=== PATIENT | female | born 1980 | race Caucasian/White ===

== ENCOUNTER 2017-11-03 11:55 | Emergency (ER) | payer OTHER ==
[~2017-11-03] VITALS: Ht 175.3 cm; Wt 111.1 kg
[~2017-11-03 11:55] MED LIST: BRINTELLIX10 MG PO; MOBIC15 MG PO; NEURONTIN 300300 M1 PO; NORCO 5-325 TA1 EAC1 PO; WELLBUTRIN XL300 MG PO; ZOFRAN ODT4 MG PO
[2017-11-03] MEDS ORDERED: PREVACID15 MG PO (12:02)
[2017-11-03] MEDS ORDERED: TRAMADOL 50 MG50 MG PO (12:41)
[2017-11-03 13:09] VITALS: BP 115/70
== END 2017-11-03 13:10 | disposition home or self-care (01) ==
LOC: M.ERS 11:55
DX: S01.81XA Laceration without foreign body of other part of head, initial encounter (principal); G43.909 Migraine, unspecified, not intractable, without status migrainosus; M79.7 Fibromyalgia; Z88.1 Allergy status to other antibiotic agents; Z88.0 Allergy status to penicillin; W22.8XXA Striking against or struck by other objects, initial encounter; Y93.89 Activity, other specified; Y92.89 Other specified places as the place of occurrence of the external cause; Y99.8 Other external cause status